=== PATIENT | male | born 1950 | race Caucasian/White ===

== ENCOUNTER → 2020-12-15 | Outpatient (CLI) | payer MEDICARE, OTHER ==
[~2020-12-15] MED LIST: TENORMIN 25 MG25 MG PO; XARELTO20 MG PO
== END ==
LOC: HEART 5 07:30 → ECHO 07:44 → HEART 5 07:44
DX: I20.8 Other forms of angina pectoris (principal); R06.02 Shortness of breath; I08.1 Rheumatic disorders of both mitral and tricuspid valves
CPT/HCPCS: ECHO; 78452; 93306; A9502; J2785

== ENCOUNTER → 2022-04-01 | Outpatient (CLI) | payer MEDICARE, OTHER | LOC: HEART 5 03-30 14:00 | DX: I48.91 Unspecified atrial fibrillation (principal); R00.1 Bradycardia, unspecified; R00.2 Palpitations ==